=== PATIENT | male | born 1985 | race Caucasian/White ===

== ENCOUNTER 2016-11-29 13:21 | Emergency (ER) | payer SELFPAY ==
[2016-11-29 16:37] LABS: BASOPHILS 0.2 % (0.0-2.0); EOSINOPHILS 0.7 % (0-7); HEMATOCRIT 45.4 % (42.0-54.0); HEMOGLOBIN 15.8 g/dL (13.5-17.5); IMMATURE GRANULOCYTES 0.1 % (0-5); LYMPHOCYTES 26.4 % (15-50); MCH 33.1 pg (26.0-34.0); MCHC 34.8 g/dL (31.0-37.0); MEAN PLATELET VOLUME 10.4 fL (7.4-10.4); MONOCYTES 7.2 % (2-11); NEUTROPHILS 65.4 % (40-80); RBC 4.78 10x6/uL (4.20-6.10); RDW 13.2 % (11.5-14.5); WBC 8.8 10x3/uL (4.8-10.8)
[2016-11-29 16:49] LABS: PLATELET COUNT 217 10x3/uL (130-400)
== END 2016-11-29 19:08 | disposition home or self-care (01) ==
LOC: D.ER 13:21
PROVIDERS: Nurse Practitioner Acute Care
DX: R51 Headache (principal); I10 Essential (primary) hypertension